=== PATIENT | female | born 1935 | race Caucasian/White ===

== ENCOUNTER 2019-03-14 11:32 | Inpatient (IN) ==
[2019-03-14] MEDS ORDERED: MAGNESIUM SULF RIDER 4 GM in PREMIX 1 EACH IV ONE (14:49)
[2019-03-14] MEDS: metroNIDAZOLE INJ 500 MG in PREMIX 1 EACH IV SCH ×2 (15:40→20:38)
[2019-03-14] MEDS: POTASSIUM CHLORIDE INJ 20 MEQ in LACTATED RINGERS 1,000 ML IV SCH (15:47)
[2019-03-14] MEDS: CHOLESTYRAMINE/ASPARTAME 4 GM PACK PO SCH ×2 (15:49→20:38)
[2019-03-14] MEDS ORDERED: PIPERACILLIN/TAZOBACTAM 3,375 MG in SODIUM CHLORIDE 0.9% 100 ML IV SCH (16:00)
[2019-03-14 16:01] LABS: Basophils # 0.1 10*3/uL (0.0-0.2); Basophils % 0.3 % (0.0-0.8); Eosinophils # 0.1 10*3/uL (0.0-0.87); Eosinophils % 0.2 % (0.00-10.9); Hematocrit 38.9 VOL% (35.7-47.0); Hemoglobin 12.6 GM/DL (12.0-16.0); Immature Granulocytes % 3.4 %; Immature Granulocytes Absolute 1.27 #; Lymphocytes # 0.7 10*3/uL (1.4-4.0); Lymphocytes % 1.9 % (21.3-54.2); Mean Corpuscular HGB Conc 32.4 GM/DL (32-36); Mean Corpuscular Volume 88.2 FL (87-102); Mean Platelet Volume 10.2 FL (9.6-12.0); Monocytes % 2.9 % (1.7-12.7); Neutrophils % 91.3 % (38.7-73.9); Platelet Count 302 T/CUMM (130-400); Red Blood Count 4.41 MC/CUMM (3.8-5.5); Red Cell Distribution Width 12.9 % (9.3-17.3); White Blood Count 37.7 T/CUMM (4-12)
[2019-03-14 16:21] LABS: Albumin 1.8 G/DL (3.4-5.0); Bilirubin,Total 0.5 MG/DL (0.2-1.0); Calcium 8.6 MG/DL (8.5-10.1); Osmolality,Calculated 269.1 MOS/KG (273-304); Total Protein 5.2 G/DL (6.4-8.3)
[2019-03-14 16:30] LABS: Band Neutrophils 4 % (0-10); Lymphocytes 2 % (20-55); Platelet Estimate Normal; Segmented Neutrophils 92 % (50-85); Total Cells Counted 100
[2019-03-14] MEDS ORDERED: LACTATED RINGERS 1,000 ML IV ONE (16:44)
[2019-03-14] MEDS: VANCOMYCIN 50 MG/ML 60 ML/BOTTLE PO SCH (17:27)
[2019-03-14] MEDS: ceFAZolin 500 MG in SYRINGE 1 EACH IV SCH (20:38)
[2019-03-15] MEDS: POTASSIUM CHLORIDE INJ 20 MEQ in LACTATED RINGERS 1,000 ML IV SCH (00:05)
[2019-03-15] MEDS: VANCOMYCIN 50 MG/ML 60 ML/BOTTLE PO SCH ×4 (00:26→21:09)
[2019-03-15] MEDS: metroNIDAZOLE INJ 500 MG in PREMIX 1 EACH IV SCH ×4 (04:00→21:09)
[2019-03-15 04:29] LABS: Basophils # 0.1 10*3/uL (0.0-0.2); Basophils % 0.2 % (0.0-0.8); Eosinophils # 0.1 10*3/uL (0.0-0.87); Eosinophils % 0.2 % (0.00-10.9); Hematocrit 31.9 VOL% (35.7-47.0); Hemoglobin 10.6 GM/DL (12.0-16.0); Immature Granulocytes % 3.1 %; Immature Granulocytes Absolute 0.93 #; Lymphocytes # 0.7 10*3/uL (1.4-4.0); Lymphocytes % 2.3 % (21.3-54.2); Mean Corpuscular HGB Conc 33.2 GM/DL (32-36); Mean Corpuscular Volume 84.2 FL (87-102); Mean Platelet Volume 9.9 FL (9.6-12.0); Monocytes % 2.9 % (1.7-12.7); Neutrophils % 91.3 % (38.7-73.9); Platelet Count 293 T/CUMM (130-400); Red Blood Count 3.79 MC/CUMM (3.8-5.5); Red Cell Distribution Width 12.8 % (9.3-17.3); White Blood Count 29.6 T/CUMM (4-12)
[2019-03-15 04:53] LABS: Calcium 8.4 MG/DL (8.5-10.1); Osmolality,Calculated 266.2 MOS/KG (273-304); Troponin I 0.015 NG/ML (0.00-0.045)
[2019-03-15 05:19] LABS: Lymphocytes 2 % (20-55); Platelet Estimate Normal; Polychromasia Few; Segmented Neutrophils 96 % (50-85); Total Cells Counted 100
[2019-03-15] MEDS: ceFAZolin 500 MG in SYRINGE 1 EACH IV SCH ×3 (05:39→23:04)
[2019-03-15] MEDS: PANTOPRAZOLE 40 MG TABLET PO SCH (09:21)
[2019-03-15] MEDS: LACTATED RINGERS 1,000 ML IV SCH ×2 (09:21→19:44)
[2019-03-15] MEDS: CHOLESTYRAMINE/ASPARTAME 4 GM PACK PO SCH ×2 (09:21→21:10)
[2019-03-15] MEDS: ACETAMINOPHEN 325 MG TABLET PO PRN (15:55)
[2019-03-16] MEDS ORDERED: MELATONIN 3 MG TABLET PO ONE ×2 (00:42→02:33)
[2019-03-16] MEDS: VANCOMYCIN 50 MG/ML 60 ML/BOTTLE PO SCH ×4 (01:01→17:08)
[2019-03-16] MEDS: ACETAMINOPHEN 325 MG TABLET PO PRN (03:32)
[2019-03-16] MEDS: metroNIDAZOLE INJ 500 MG in PREMIX 1 EACH IV SCH ×4 (03:32→21:06)
[2019-03-16 05:40] LABS: Basophils # 0.1 10*3/uL (0.0-0.2); Basophils % 0.4 % (0.0-0.8); Eosinophils # 0.2 10*3/uL (0.0-0.87); Eosinophils % 1.3 % (0.00-10.9); Hematocrit 32.9 VOL% (35.7-47.0); Hemoglobin 10.9 GM/DL (12.0-16.0); Immature Granulocytes % 3.3 %; Lymphocytes # 0.6 10*3/uL (1.4-4.0); Lymphocytes % 4.1 % (21.3-54.2); Mean Corpuscular HGB Conc 33.1 GM/DL (32-36); Mean Corpuscular Volume 86.1 FL (87-102); Mean Platelet Volume 11.3 FL (9.6-12.0); Monocytes % 3.9 % (1.7-12.7); Platelet Count 199 T/CUMM (130-400); Red Blood Count 3.82 MC/CUMM (3.8-5.5); Red Cell Distribution Width 12.7 % (9.3-17.3)
[2019-03-16] MEDS: ceFAZolin 500 MG in SYRINGE 1 EACH IV SCH ×3 (06:14→21:07)
[2019-03-16 06:16] LABS: Albumin 1.6 G/DL (3.4-5.0); Bilirubin,Total 0.7 MG/DL (0.2-1.0); Calcium 8.3 MG/DL (8.5-10.1); Total Protein 4.2 G/DL (6.4-8.3)
[2019-03-16 06:18] LABS: Band Neutrophils 4 % (0-10); Eosinophils 3 % (0-10); Hypochromasia 1+; Lymphocytes 6 % (20-55); Microcytosis 1+; Myelocytes 2 %; Segmented Neutrophils 82 % (50-85); Total Cells Counted 100
[2019-03-16 06:19] LABS: Ovalocytes Few; Platelet Estimate Adequate
[2019-03-16] MEDS: CHOLESTYRAMINE/ASPARTAME 4 GM PACK PO SCH ×2 (08:34→21:06)
[2019-03-16] MEDS: PANTOPRAZOLE 40 MG TABLET PO SCH (08:34)
[2019-03-16] MEDS: DICLOFENAC 1% GEL 100 GM TUBE TOP PRN (12:17)
[2019-03-16] MEDS: LACTATED RINGERS 1,000 ML IV SCH (12:19)
[2019-03-17] MEDS: LACTATED RINGERS 1,000 ML IV SCH ×2 (00:11→10:11)
[2019-03-17] MEDS: VANCOMYCIN 50 MG/ML 60 ML/BOTTLE PO SCH ×4 (00:12→17:36)
[2019-03-17] MEDS: metroNIDAZOLE INJ 500 MG in PREMIX 1 EACH IV SCH ×4 (03:38→21:29)
[2019-03-17 05:06] LABS: Basophils # 0.1 10*3/uL (0.0-0.2); Basophils % 0.7 % (0.0-0.8); Eosinophils # 0.1 10*3/uL (0.0-0.87); Eosinophils % 0.7 % (0.00-10.9); Hematocrit 36.5 VOL% (35.7-47.0); Hemoglobin 12.3 GM/DL (12.0-16.0); Immature Granulocytes % 5.4 %; Lymphocytes # 0.8 10*3/uL (1.4-4.0); Lymphocytes % 5.5 % (21.3-54.2); Mean Corpuscular HGB Conc 33.7 GM/DL (32-36); Mean Corpuscular Volume 83.7 FL (87-102); Mean Platelet Volume 9.6 FL (9.6-12.0); Monocytes % 6.7 % (1.7-12.7); Platelet Count 296 T/CUMM (130-400); Red Blood Count 4.36 MC/CUMM (3.8-5.5); Red Cell Distribution Width 12.6 % (9.3-17.3); White Blood Count 14.7 T/CUMM (4-12)
[2019-03-17] MEDS: ceFAZolin 500 MG in SYRINGE 1 EACH IV SCH ×3 (05:20→21:27)
[2019-03-17 06:02] LABS: Lymphocytes 4 % (20-55); Metamyelocytes 2 %; Platelet Estimate Normal; Segmented Neutrophils 89 % (50-85); Total Cells Counted 100
[2019-03-17 06:06] LABS: Alanine Aminotransferase 9 U/L (13-56); Albumin 1.7 G/DL (3.4-5.0); Alkaline Phosphatase 79 U/L (45-117); Aspartate Amino Transferase 14 U/L (0-37); Bilirubin,Total < 0.39 MG/DL (0.2-1.0); Blood Urea Nitrogen 8 MG/DL (7-18); Calcium 8.3 MG/DL (8.5-10.1); Estimated Glom Filtration Rate 78 ML/MIN; Glucose 82 MG/DL (74-106); Osmolality,Calculated 275.4 MOS/KG (273-304); Total Protein 4.2 G/DL (6.4-8.3)
[2019-03-17] MEDS: DICLOFENAC 1% GEL 100 GM TUBE TOP PRN ×2 (09:14→16:36)
[2019-03-17] MEDS: CHOLESTYRAMINE/ASPARTAME 4 GM PACK PO SCH ×2 (09:15→21:29)
[2019-03-17] MEDS: PANTOPRAZOLE 40 MG TABLET PO SCH (09:15)
[2019-03-17] MEDS: POTASSIUM CHLORIDE 20 MEQ TABLET PO PRN ×3 (09:15→13:40)
[2019-03-17] MEDS: ACETAMINOPHEN 325 MG TABLET PO PRN ×2 (09:20→16:36)
[2019-03-17] MEDS: GABAPENTIN 300 MG CAPSULE PO SCH (21:27)
[2019-03-17] MEDS: MEMANTINE 10 MG TABLET PO SCH (21:28)
[2019-03-18] MEDS: VANCOMYCIN 50 MG/ML 60 ML/BOTTLE PO SCH ×2 (01:40→06:15)
[2019-03-18] MEDS: metroNIDAZOLE INJ 500 MG in PREMIX 1 EACH IV SCH ×4 (04:34→21:45)
[2019-03-18] MEDS: ceFAZolin 500 MG in SYRINGE 1 EACH IV SCH (04:35)
[2019-03-18 05:34] LABS: Basophils # 0.1 10*3/uL (0.0-0.2); Basophils % 0.7 % (0.0-0.8); Eosinophils # 0.2 10*3/uL (0.0-0.87); Eosinophils % 1.5 % (0.00-10.9); Hematocrit 34.4 VOL% (35.7-47.0); Hemoglobin 11.5 GM/DL (12.0-16.0); Immature Granulocytes % 6.8 %; Immature Granulocytes Absolute 0.79 #; Lymphocytes # 0.9 10*3/uL (1.4-4.0); Lymphocytes % 7.9 % (21.3-54.2); Mean Corpuscular HGB Conc 33.4 GM/DL (32-36); Mean Corpuscular Volume 83.7 FL (87-102); Mean Platelet Volume 9.3 FL (9.6-12.0); Neutrophils % 74.1 % (38.7-73.9); Platelet Count 265 T/CUMM (130-400); Red Blood Count 4.11 MC/CUMM (3.8-5.5); Red Cell Distribution Width 12.7 % (9.3-17.3); White Blood Count 11.6 T/CUMM (4-12)
[2019-03-18 05:52] LABS: Albumin 1.5 G/DL (3.4-5.0); Bilirubin,Total 0.8 MG/DL (0.2-1.0); Calcium 7.7 MG/DL (8.5-10.1); Osmolality,Calculated 277.3 MOS/KG (273-304); Total Protein 3.7 G/DL (6.4-8.3)
[2019-03-18 05:58] LABS: Band Neutrophils 1 % (0-10); Eosinophils 3 % (0-10); Hypochromasia 1+; Lymphocytes 6 % (20-55); Microcytosis Slight; Ovalocytes Slight; Platelet Estimate Adequate; Segmented Neutrophils 86 % (50-85); Total Cells Counted 100
[2019-03-18] MEDS: MEMANTINE 10 MG TABLET PO SCH ×2 (09:21→20:38)
[2019-03-18] MEDS: GABAPENTIN 300 MG CAPSULE PO SCH ×2 (09:21→20:37)
[2019-03-18] MEDS: LEVOTHYROXINE 100 MCG TABLET PO SCH (09:22)
[2019-03-18] MEDS: PANTOPRAZOLE 40 MG TABLET PO SCH (09:22)
[2019-03-18] MEDS: FERROUS SULFATE 325 MG TABLET PO SCH (09:22)
[2019-03-18] MEDS: LACTATED RINGERS 1,000 ML IV SCH (09:40)
[2019-03-18] MEDS: CHOLESTYRAMINE/ASPARTAME 4 GM PACK PO SCH ×2 (09:40→20:38)
[2019-03-18] MEDS: PIPERACILLIN/TAZOBACTAM 3,375 MG in SODIUM CHLORIDE 0.9% 100 ML IV SCH ×2 (10:56→17:29)
[2019-03-18] MEDS: POTASSIUM CHLORIDE 20 MEQ TABLET PO PRN (10:57)
[2019-03-18] MEDS ORDERED: MENTHOL/ZINC OXIDE OINT 71 GM JAR TOP PRN (13:53)
[2019-03-18] MEDS: ONDANSETRON 4 MG/2 ML VIAL IV PRN (16:59)
[2019-03-19] MEDS: PIPERACILLIN/TAZOBACTAM 3,375 MG in SODIUM CHLORIDE 0.9% 100 ML IV SCH ×3 (02:05→17:41)
[2019-03-19] MEDS: ONDANSETRON 4 MG/2 ML VIAL IV PRN ×2 (02:58→11:06)
[2019-03-19] MEDS: metroNIDAZOLE INJ 500 MG in PREMIX 1 EACH IV SCH ×4 (07:04→22:00)
[2019-03-19] MEDS: FERROUS SULFATE 325 MG TABLET PO SCH (09:34)
[2019-03-19] MEDS: PANTOPRAZOLE 40 MG TABLET PO SCH (09:34)
[2019-03-19] MEDS: LEVOTHYROXINE 100 MCG TABLET PO SCH (09:34)
[2019-03-19] MEDS: MEMANTINE 10 MG TABLET PO SCH ×2 (09:34→21:12)
[2019-03-19] MEDS: CHOLESTYRAMINE/ASPARTAME 4 GM PACK PO SCH ×2 (09:34→21:12)
[2019-03-19] MEDS: GABAPENTIN 300 MG CAPSULE PO SCH ×2 (09:34→21:13)
[2019-03-19] MEDS: ACETAMINOPHEN 325 MG TABLET PO PRN (12:48)
[2019-03-19] MEDS: LACTATED RINGERS 1,000 ML IV SCH (14:58)
[2019-03-20] MEDS: PIPERACILLIN/TAZOBACTAM 3,375 MG in SODIUM CHLORIDE 0.9% 100 ML IV SCH ×3 (01:36→18:13)
[2019-03-20] MEDS: metroNIDAZOLE INJ 500 MG in PREMIX 1 EACH IV SCH ×4 (06:05→23:19)
[2019-03-20 08:54] LABS: Basophils # 0.1 10*3/uL (0.0-0.2); Basophils % 0.9 % (0.0-0.8); Eosinophils # 0.2 10*3/uL (0.0-0.87); Eosinophils % 1.9 % (0.00-10.9); Hematocrit 37.1 VOL% (35.7-47.0); Immature Granulocytes % 9.2 %; Immature Granulocytes Absolute 0.97 #; Lymphocytes % 9.5 % (21.3-54.2); Mean Corpuscular HGB Conc 32.3 GM/DL (32-36); Mean Corpuscular Volume 86.5 FL (87-102); Monocytes % 7.5 % (1.7-12.7); Platelet Count 328 T/CUMM (130-400); Red Blood Count 4.29 MC/CUMM (3.8-5.5); Red Cell Distribution Width 13.1 % (9.3-17.3); White Blood Count 10.5 T/CUMM (4-12)
[2019-03-20] MEDS: MEMANTINE 10 MG TABLET PO SCH ×2 (09:05→21:57)
[2019-03-20] MEDS: LEVOTHYROXINE 100 MCG TABLET PO SCH (09:05)
[2019-03-20] MEDS: FERROUS SULFATE 325 MG TABLET PO SCH (09:06)
[2019-03-20] MEDS: POTASSIUM CHLORIDE 20 MEQ TABLET PO PRN ×2 (09:06→16:00)
[2019-03-20] MEDS: CHOLESTYRAMINE/ASPARTAME 4 GM PACK PO SCH ×2 (09:06→21:57)
[2019-03-20] MEDS: GABAPENTIN 300 MG CAPSULE PO SCH ×2 (09:06→21:57)
[2019-03-20] MEDS: PANTOPRAZOLE 40 MG TABLET PO SCH (09:06)
[2019-03-20 09:23] LABS: Band Neutrophils 18 % (0-10); Eosinophils 2 % (0-10); Lymphocytes 14 % (20-55); Platelet Estimate Normal; Segmented Neutrophils 58 % (50-85); Total Cells Counted 100
[2019-03-20 09:24] LABS: Anisocytosis Slight
[2019-03-20 09:44] LABS: Calcium 7.5 MG/DL (8.5-10.1); Osmolality,Calculated 273.5 MOS/KG (273-304)
[2019-03-20] MEDS ORDERED: GLUCAGON 1 MG VIAL IM PRN (11:14)
[2019-03-20] MEDS ORDERED: DEXTROSE 50% 25 GM/50 ML VIAL IV PRN (11:14)
[2019-03-20] MEDS ORDERED: DEXTROSE 10% 250 ML IV PRN (11:22)
[2019-03-20] MEDS ORDERED: TUBERCULIN SKIN TEST 0.1 ML SYRINGE INTRADERM ONE (13:00)
[2019-03-20] MEDS: INSULIN REGULAR 100 UNIT/ML SUBCUT SCH ×2 (13:15→17:07)
[2019-03-20] MEDS ORDERED: BISACODYL 5 MG TABLET PO ONE (16:00)
[2019-03-20] MEDS ORDERED: POLYETHYLENE GLYCOL POWDER 255 GM BOTTLE PO ONE (16:00)
[2019-03-20] MEDS ORDERED: TRACE ELEMENTS (5) 1 ML, MULTIVITAMIN INJ 10 ML, MAGNESIUM SULF INJ 2 GM in AMINO ACIDS... IV SCH (17:00)
[2019-03-20] MEDS ORDERED: DEXTROSE 10% 1,000 ML IV PRN (17:00)
[2019-03-20] MEDS: FAT EMULSION 20% 250 ML IV SCH (17:45)
[2019-03-20] MEDS: LACTATED RINGERS 1,000 ML IV SCH (18:13)
[2019-03-20] MEDS: ONDANSETRON 4 MG/2 ML VIAL IV PRN (18:57)
[2019-03-21] MEDS: INSULIN REGULAR 100 UNIT/ML SUBCUT SCH ×4 (02:53→19:11)
[2019-03-21] MEDS: PIPERACILLIN/TAZOBACTAM 3,375 MG in SODIUM CHLORIDE 0.9% 100 ML IV SCH ×2 (03:38→10:33)
[2019-03-21 04:48] LABS: Basophils # 0.1 10*3/uL (0.0-0.2); Basophils % 0.6 % (0.0-0.8); Eosinophils # 0.2 10*3/uL (0.0-0.87); Eosinophils % 1.8 % (0.00-10.9); Hematocrit 31.9 VOL% (35.7-47.0); Hemoglobin 10.4 GM/DL (12.0-16.0); Immature Granulocytes % 7.4 %; Immature Granulocytes Absolute 0.79 #; Lymphocytes # 0.8 10*3/uL (1.4-4.0); Mean Corpuscular HGB Conc 32.6 GM/DL (32-36); Mean Corpuscular Volume 84.8 FL (87-102); Mean Platelet Volume 10.8 FL (9.6-12.0); Monocytes % 6.8 % (1.7-12.7); Neutrophils % 76.4 % (38.7-73.9); Platelet Count 186 T/CUMM (130-400); Red Blood Count 3.76 MC/CUMM (3.8-5.5); White Blood Count 10.7 T/CUMM (4-12)
[2019-03-21 04:50] LABS: INR 1.3; PT Patient Result 14.6 SECS (9.6-12.2)
[2019-03-21 05:06] LABS: Calcium 7.6 MG/DL (8.5-10.1)
[2019-03-21 05:11] LABS: Prealbumin 10.2 MG/DL (20-40)
[2019-03-21 05:23] LABS: Band Neutrophils 1 % (0-10); Eosinophils 1 % (0-10); Hypochromasia 1+; Lymphocytes 13 % (20-55); Platelet Estimate Adequate; Segmented Neutrophils 81 % (50-85); Total Cells Counted 100
[2019-03-21 05:24] LABS: Ovalocytes Slight
[2019-03-21] MEDS: LACTATED RINGERS 1,000 ML IV SCH ×2 (07:17→16:14)
[2019-03-21] MEDS: metroNIDAZOLE INJ 500 MG in PREMIX 1 EACH IV SCH ×2 (09:10→15:26)
[2019-03-21] MEDS ORDERED: PROPOFOL 200 MG/20 ML VIAL IV ONE (10:00)
[2019-03-21] MEDS ORDERED: LIDOCAINE 2% 5 ML VIAL ONE (10:00)
[2019-03-21] MEDS: MORPHINE 4 MG/1 ML VIAL IV PRN ×2 (10:20→16:37)
[2019-03-21] MEDS ORDERED: MAGNESIUM SULF RIDER 2 GM in PREMIX 1 EACH IV ONE (15:08)
[2019-03-21] MEDS: LEVOTHYROXINE 100 MCG TABLET PO SCH (15:35)
[2019-03-21] MEDS: FERROUS SULFATE 325 MG TABLET PO SCH (15:35)
[2019-03-21] MEDS: POTASSIUM CHLORIDE 20 MEQ TABLET PO PRN ×2 (15:35→19:31)
[2019-03-21] MEDS: PANTOPRAZOLE 40 MG TABLET PO SCH (15:35)
[2019-03-21] MEDS: FAT EMULSION 20% 250 ML IV SCH (15:41)
[2019-03-21] MEDS: MEMANTINE 10 MG TABLET PO SCH ×2 (16:14→21:29)
[2019-03-21] MEDS: GABAPENTIN 300 MG CAPSULE PO SCH ×2 (16:15→21:48)
[2019-03-21] MEDS: CHOLESTYRAMINE/ASPARTAME 4 GM PACK PO SCH ×2 (16:15→21:29)
[2019-03-21] MEDS: VANCOMYCIN 50 MG/ML 60 ML/BOTTLE PO SCH (18:57)
[2019-03-21] MEDS ORDERED: traZODone 50 MG TABLET PO ONE (21:00)
[2019-03-21] MEDS: DESITIN 4OZ/NYSTATIN 15 GRAM MIXTURE PASTE TOP SCH (21:30)
[2019-03-22] MEDS: VANCOMYCIN 50 MG/ML 60 ML/BOTTLE PO SCH ×5 (00:59→20:59)
[2019-03-22] MEDS: INSULIN REGULAR 100 UNIT/ML SUBCUT SCH ×4 (02:04→19:12)
[2019-03-22 05:31] LABS: Basophils % 0.5 % (0.0-0.8); Eosinophils # 0.2 10*3/uL (0.0-0.87); Eosinophils % 1.7 % (0.00-10.9); Hematocrit 30.7 VOL% (35.7-47.0); Hemoglobin 9.9 GM/DL (12.0-16.0); Immature Granulocytes % 5.4 %; Immature Granulocytes Absolute 0.47 #; Lymphocytes # 0.9 10*3/uL (1.4-4.0); Lymphocytes % 9.8 % (21.3-54.2); Mean Corpuscular HGB Conc 32.2 GM/DL (32-36); Mean Corpuscular Volume 86.5 FL (87-102); Mean Platelet Volume 9.6 FL (9.6-12.0); Monocytes % 6.5 % (1.7-12.7); Neutrophils % 76.1 % (38.7-73.9); Platelet Count 277 T/CUMM (130-400); Red Blood Count 3.55 MC/CUMM (3.8-5.5); White Blood Count 8.8 T/CUMM (4-12)
[2019-03-22 06:03] LABS: Band Neutrophils 2 % (0-10); Eosinophils 2 % (0-10); Lymphocytes 6 % (20-55); Nucleated Red Blood Cells 1 (0-5); Segmented Neutrophils 84 % (50-85); Total Cells Counted 100
[2019-03-22 06:04] LABS: Anisocytosis 1+; Hypochromasia 1+; Platelet Estimate Adequate
[2019-03-22 06:06] LABS: Calcium 7.3 MG/DL (8.5-10.1); Osmolality,Calculated 278.4 MOS/KG (273-304)
[2019-03-22] MEDS: DICLOFENAC 1% GEL 100 GM TUBE TOP PRN (08:12)
[2019-03-22] MEDS: TRACE ELEMENTS (5) 1 ML, MULTIVITAMIN INJ 10 ML, MAGNESIUM SULF INJ 2 GM in AMINO ACIDS... IV SCH ×2 (09:48→18:44)
[2019-03-22] MEDS: PANTOPRAZOLE 40 MG TABLET PO SCH (09:51)
[2019-03-22] MEDS: FERROUS SULFATE 325 MG TABLET PO SCH (09:51)
[2019-03-22] MEDS: LEVOTHYROXINE 100 MCG TABLET PO SCH (09:51)
[2019-03-22] MEDS: GABAPENTIN 300 MG CAPSULE PO SCH ×2 (09:52→20:58)
[2019-03-22] MEDS: MEMANTINE 10 MG TABLET PO SCH ×2 (09:53→20:58)
[2019-03-22] MEDS: CHOLESTYRAMINE/ASPARTAME 4 GM PACK PO SCH ×2 (10:13→20:59)
[2019-03-22] MEDS: ONDANSETRON 4 MG/2 ML VIAL IV PRN (14:31)
[2019-03-22] MEDS ORDERED: MAGNESIUM SULF RIDER 2 GM in PREMIX 1 EACH IV ONE (15:00)
[2019-03-22] MEDS: FAT EMULSION 20% 250 ML IV SCH (16:00)
[2019-03-22] MEDS: DESITIN 4OZ/NYSTATIN 15 GRAM MIXTURE PASTE TOP SCH ×2 (16:05→20:59)
[2019-03-22] MEDS: LACTATED RINGERS 1,000 ML IV SCH (20:44)
[2019-03-23] MEDS: INSULIN REGULAR 100 UNIT/ML SUBCUT SCH ×4 (02:01→18:36)
[2019-03-23 05:44] LABS: Basophils % 0.4 % (0.0-0.8); Eosinophils # 0.2 10*3/uL (0.0-0.87); Hemoglobin 9.9 GM/DL (12.0-16.0); Immature Granulocytes % 4.9 %; Immature Granulocytes Absolute 0.44 #; Lymphocytes % 10.8 % (21.3-54.2); Mean Corpuscular HGB Conc 31.9 GM/DL (32-36); Mean Corpuscular Volume 87.3 FL (87-102); Mean Platelet Volume 9.7 FL (9.6-12.0); Monocytes % 6.1 % (1.7-12.7); Neutrophils % 75.8 % (38.7-73.9); Platelet Count 265 T/CUMM (130-400); Red Blood Count 3.55 MC/CUMM (3.8-5.5); Red Cell Distribution Width 13.2 % (9.3-17.3)
[2019-03-23 06:18] LABS: Calcium 7.5 MG/DL (8.5-10.1); Osmolality,Calculated 273.5 MOS/KG (273-304)
[2019-03-23] MEDS: FERROUS SULFATE 325 MG TABLET PO SCH (09:13)
[2019-03-23] MEDS: LEVOTHYROXINE 100 MCG TABLET PO SCH (09:13)
[2019-03-23] MEDS: MEMANTINE 10 MG TABLET PO SCH ×2 (09:13→20:47)
[2019-03-23] MEDS: GABAPENTIN 300 MG CAPSULE PO SCH ×2 (09:13→20:46)
[2019-03-23] MEDS: PANTOPRAZOLE 40 MG TABLET PO SCH (09:13)
[2019-03-23] MEDS: VANCOMYCIN 50 MG/ML 60 ML/BOTTLE PO SCH ×4 (09:14→20:47)
[2019-03-23] MEDS: CHOLESTYRAMINE/ASPARTAME 4 GM PACK PO SCH (09:14)
[2019-03-23] MEDS: DESITIN 4OZ/NYSTATIN 15 GRAM MIXTURE PASTE TOP SCH ×2 (10:29→20:47)
[2019-03-23] MEDS: ACETAMINOPHEN 325 MG TABLET PO PRN (13:34)
[2019-03-23] MEDS: FAT EMULSION 20% 250 ML IV SCH (14:34)
[2019-03-23] MEDS: TRACE ELEMENTS (5) 1 ML, MULTIVITAMIN INJ 10 ML, MAGNESIUM SULF INJ 2 GM in AMINO ACIDS... IV SCH (17:54)
[2019-03-24] MEDS: INSULIN REGULAR 100 UNIT/ML SUBCUT SCH ×4 (00:59→19:15)
[2019-03-24 05:21] LABS: Basophils # 0.1 10*3/uL (0.0-0.2); Basophils % 0.5 % (0.0-0.8); Eosinophils # 0.2 10*3/uL (0.0-0.87); Eosinophils % 1.6 % (0.00-10.9); Immature Granulocytes % 4.4 %; Immature Granulocytes Absolute 0.41 #; Lymphocytes # 0.9 10*3/uL (1.4-4.0); Lymphocytes % 9.3 % (21.3-54.2); Mean Corpuscular HGB Conc 32.4 GM/DL (32-36); Mean Corpuscular Volume 87.2 FL (87-102); Mean Platelet Volume 9.6 FL (9.6-12.0); Monocytes % 6.7 % (1.7-12.7); Neutrophils % 77.5 % (38.7-73.9); Platelet Count 289 T/CUMM (130-400); Red Cell Distribution Width 13.3 % (9.3-17.3); White Blood Count 9.3 T/CUMM (4-12)
[2019-03-24 05:39] LABS: Calcium 8.2 MG/DL (8.5-10.1); Osmolality,Calculated 278.4 MOS/KG (273-304)
[2019-03-24] MEDS: GABAPENTIN 300 MG CAPSULE PO SCH ×2 (09:02→20:41)
[2019-03-24] MEDS: FERROUS SULFATE 325 MG TABLET PO SCH (09:03)
[2019-03-24] MEDS: PANTOPRAZOLE 40 MG TABLET PO SCH (09:03)
[2019-03-24] MEDS: MEMANTINE 10 MG TABLET PO SCH ×2 (09:03→20:41)
[2019-03-24] MEDS: LEVOTHYROXINE 100 MCG TABLET PO SCH (09:03)
[2019-03-24] MEDS: POTASSIUM CHLORIDE 20 MEQ TABLET PO PRN ×4 (09:03→18:54)
[2019-03-24] MEDS: DESITIN 4OZ/NYSTATIN 15 GRAM MIXTURE PASTE TOP SCH ×2 (10:06→20:42)
[2019-03-24] MEDS: VANCOMYCIN 50 MG/ML 60 ML/BOTTLE PO SCH ×4 (10:06→20:42)
[2019-03-24] MEDS: MAGNESIUM OXIDE 400 MG TABLET PO SCH ×2 (12:19→20:41)
[2019-03-24] MEDS: LACTATED RINGERS 1,000 ML IV SCH (14:03)
[2019-03-24] MEDS: FAT EMULSION 20% 250 ML IV SCH (14:04)
[2019-03-24] MEDS: TRACE ELEMENTS (5) 1 ML, MULTIVITAMIN INJ 10 ML, MAGNESIUM SULF INJ 2 GM in AMINO ACIDS... IV SCH (16:59)
[2019-03-25] MEDS: INSULIN REGULAR 100 UNIT/ML SUBCUT SCH ×4 (00:28→18:13)
[2019-03-25 05:40] LABS: Calcium 8.3 MG/DL (8.5-10.1); Osmolality,Calculated 277.5 MOS/KG (273-304)
[2019-03-25 05:46] LABS: Prealbumin 16.9 MG/DL (20-40)
[2019-03-25] MEDS: LEVOTHYROXINE 100 MCG TABLET PO SCH (07:24)
[2019-03-25] MEDS: GABAPENTIN 300 MG CAPSULE PO SCH ×2 (08:54→21:38)
[2019-03-25] MEDS: FERROUS SULFATE 325 MG TABLET PO SCH (08:54)
[2019-03-25] MEDS: PANTOPRAZOLE 40 MG TABLET PO SCH (08:54)
[2019-03-25] MEDS: MEMANTINE 10 MG TABLET PO SCH ×2 (08:54→21:42)
[2019-03-25] MEDS: MAGNESIUM OXIDE 400 MG TABLET PO SCH ×2 (08:54→21:38)
[2019-03-25] MEDS: VANCOMYCIN 50 MG/ML 60 ML/BOTTLE PO SCH ×4 (08:54→21:42)
[2019-03-25] MEDS: DESITIN 4OZ/NYSTATIN 15 GRAM MIXTURE PASTE TOP SCH ×2 (08:55→21:38)
[2019-03-25 09:20] LABS: Basophils % 0.4 % (0.0-0.8); Eosinophils # 0.1 10*3/uL (0.0-0.87); Eosinophils % 1.4 % (0.00-10.9); Hematocrit 34.3 VOL% (35.7-47.0); Hemoglobin 10.9 GM/DL (12.0-16.0); Immature Granulocytes % 1.6 %; Immature Granulocytes Absolute 0.16 #; Lymphocytes # 1.1 10*3/uL (1.4-4.0); Lymphocytes % 10.9 % (21.3-54.2); Mean Corpuscular HGB Conc 31.8 GM/DL (32-36); Mean Corpuscular Volume 88.9 FL (87-102); Mean Platelet Volume 10.4 FL (9.6-12.0); Monocytes % 6.9 % (1.7-12.7); Neutrophils % 78.8 % (38.7-73.9); Platelet Count 245 T/CUMM (130-400); Red Blood Count 3.86 MC/CUMM (3.8-5.5); Red Cell Distribution Width 13.7 % (9.3-17.3); White Blood Count 9.7 T/CUMM (4-12)
[2019-03-25] MEDS: FAT EMULSION 20% 250 ML IV SCH (14:42)
[2019-03-25] MEDS: LACTATED RINGERS 1,000 ML IV SCH (14:42)
[2019-03-25] MEDS: metroNIDAZOLE INJ 500 MG in PREMIX 1 EACH IV SCH ×2 (14:42→21:43)
[2019-03-25] MEDS: TRACE ELEMENTS (5) 1 ML, MULTIVITAMIN INJ 10 ML, MAGNESIUM SULF INJ 2 GM in AMINO ACIDS... IV SCH (17:18)
[2019-03-26] MEDS: INSULIN REGULAR 100 UNIT/ML SUBCUT SCH ×4 (01:54→18:17)
[2019-03-26] MEDS: metroNIDAZOLE INJ 500 MG in PREMIX 1 EACH IV SCH ×3 (05:42→21:28)
[2019-03-26] MEDS: LACTATED RINGERS 1,000 ML IV SCH (05:43)
[2019-03-26] MEDS: LEVOTHYROXINE 100 MCG TABLET PO SCH (06:09)
[2019-03-26] MEDS: MORPHINE 4 MG/1 ML VIAL IV PRN (09:33)
[2019-03-26] MEDS: GABAPENTIN 300 MG CAPSULE PO SCH ×2 (09:34→21:29)
[2019-03-26] MEDS: PANTOPRAZOLE 40 MG TABLET PO SCH (09:34)
[2019-03-26] MEDS: MAGNESIUM OXIDE 400 MG TABLET PO SCH ×2 (09:34→21:29)
[2019-03-26] MEDS: DESITIN 4OZ/NYSTATIN 15 GRAM MIXTURE PASTE TOP SCH ×2 (09:34→21:36)
[2019-03-26] MEDS: MEMANTINE 10 MG TABLET PO SCH ×2 (09:34→21:29)
[2019-03-26] MEDS: FERROUS SULFATE 325 MG TABLET PO SCH (09:34)
[2019-03-26] MEDS: VANCOMYCIN 50 MG/ML 60 ML/BOTTLE PO SCH ×4 (09:34→21:40)
[2019-03-26 12:09] LABS: Basophils % 0.4 % (0.0-0.8); Eosinophils # 0.1 10*3/uL (0.0-0.87); Eosinophils % 0.8 % (0.00-10.9); Hematocrit 32.2 VOL% (35.7-47.0); Hemoglobin 10.4 GM/DL (12.0-16.0); Immature Granulocytes % 0.8 %; Immature Granulocytes Absolute 0.08 #; Lymphocytes # 0.9 10*3/uL (1.4-4.0); Lymphocytes % 8.4 % (21.3-54.2); Mean Corpuscular HGB Conc 32.3 GM/DL (32-36); Mean Corpuscular Volume 86.8 FL (87-102); Mean Platelet Volume 9.7 FL (9.6-12.0); Monocytes % 7.7 % (1.7-12.7); Neutrophils % 81.9 % (38.7-73.9); Platelet Count 284 T/CUMM (130-400); Red Blood Count 3.71 MC/CUMM (3.8-5.5); Red Cell Distribution Width 13.7 % (9.3-17.3); White Blood Count 10.3 T/CUMM (4-12)
[2019-03-26 12:36] LABS: Calcium 8.4 MG/DL (8.5-10.1); Osmolality,Calculated 274.8 MOS/KG (273-304)
[2019-03-26] MEDS: FAT EMULSION 20% 250 ML IV SCH (14:50)
[2019-03-26] MEDS: TRACE ELEMENTS (5) 1 ML, MULTIVITAMIN INJ 10 ML, MAGNESIUM SULF INJ 2 GM in AMINO ACIDS... IV SCH (17:00)
[2019-03-27] MEDS: INSULIN REGULAR 100 UNIT/ML SUBCUT SCH ×4 (01:26→18:46)
[2019-03-27] MEDS: LEVOTHYROXINE 100 MCG TABLET PO SCH (05:50)
[2019-03-27] MEDS: metroNIDAZOLE INJ 500 MG in PREMIX 1 EACH IV SCH ×3 (05:50→21:35)
[2019-03-27 08:16] LABS: Basophils % 0.5 % (0.0-0.8); Eosinophils # 0.1 10*3/uL (0.0-0.87); Eosinophils % 1.9 % (0.00-10.9); Hematocrit 32.5 VOL% (35.7-47.0); Hemoglobin 10.3 GM/DL (12.0-16.0); Immature Granulocytes % 1.1 %; Immature Granulocytes Absolute 0.08 #; Lymphocytes # 0.9 10*3/uL (1.4-4.0); Lymphocytes % 12.2 % (21.3-54.2); Mean Corpuscular HGB Conc 31.7 GM/DL (32-36); Mean Corpuscular Volume 88.6 FL (87-102); Mean Platelet Volume 9.7 FL (9.6-12.0); Monocytes % 9.9 % (1.7-12.7); Neutrophils % 74.4 % (38.7-73.9); Platelet Count 255 T/CUMM (130-400); Red Blood Count 3.67 MC/CUMM (3.8-5.5); Red Cell Distribution Width 13.7 % (9.3-17.3); White Blood Count 7.4 T/CUMM (4-12)
[2019-03-27 08:44] LABS: Calcium 8.2 MG/DL (8.5-10.1); Osmolality,Calculated 275.8 MOS/KG (273-304)
[2019-03-27] MEDS: FERROUS SULFATE 325 MG TABLET PO SCH (09:53)
[2019-03-27] MEDS: GABAPENTIN 300 MG CAPSULE PO SCH ×2 (09:53→21:09)
[2019-03-27] MEDS: MAGNESIUM OXIDE 400 MG TABLET PO SCH ×2 (09:53→21:09)
[2019-03-27] MEDS: PANTOPRAZOLE 40 MG TABLET PO SCH (09:53)
[2019-03-27] MEDS: MEMANTINE 10 MG TABLET PO SCH ×2 (09:53→21:09)
[2019-03-27] MEDS: DESITIN 4OZ/NYSTATIN 15 GRAM MIXTURE PASTE TOP SCH ×2 (09:55→21:16)
[2019-03-27] MEDS: VANCOMYCIN 50 MG/ML 60 ML/BOTTLE PO SCH ×4 (09:56→21:10)
[2019-03-27] MEDS: LACTATED RINGERS 1,000 ML IV SCH ×2 (12:36→21:18)
[2019-03-27] MEDS: MORPHINE 4 MG/1 ML VIAL IV PRN (13:23)
[2019-03-27] MEDS: FAT EMULSION 20% 250 ML IV SCH (13:50)
[2019-03-27] MEDS: TRACE ELEMENTS (5) 1 ML, MULTIVITAMIN INJ 10 ML, MAGNESIUM SULF INJ 2 GM in AMINO ACIDS... IV SCH (16:31)
[2019-03-28] MEDS: INSULIN REGULAR 100 UNIT/ML SUBCUT SCH ×4 (01:59→18:28)
[2019-03-28 04:40] LABS: Basophils % 0.4 % (0.0-0.8); Eosinophils # 0.2 10*3/uL (0.0-0.87); Eosinophils % 2.2 % (0.00-10.9); Hematocrit 30.5 VOL% (35.7-47.0); Hemoglobin 9.8 GM/DL (12.0-16.0); Immature Granulocytes % 1.1 %; Immature Granulocytes Absolute 0.08 #; Lymphocytes % 13.8 % (21.3-54.2); Mean Corpuscular HGB Conc 32.1 GM/DL (32-36); Mean Corpuscular Volume 86.2 FL (87-102); Mean Platelet Volume 10.9 FL (9.6-12.0); Monocytes % 13.2 % (1.7-12.7); Neutrophils % 69.3 % (38.7-73.9); Platelet Count 206 T/CUMM (130-400); Red Blood Count 3.54 MC/CUMM (3.8-5.5); Red Cell Distribution Width 13.8 % (9.3-17.3); White Blood Count 7.3 T/CUMM (4-12)
[2019-03-28 04:50] LABS: Calcium 8.4 MG/DL (8.5-10.1)
[2019-03-28 04:52] LABS: Osmolality,Calculated 277.7 MOS/KG (273-304)
[2019-03-28] MEDS: metroNIDAZOLE INJ 500 MG in PREMIX 1 EACH IV SCH ×3 (05:50→21:48)
[2019-03-28] MEDS: LEVOTHYROXINE 100 MCG TABLET PO SCH (05:51)
[2019-03-28] MEDS ORDERED: PROPOFOL 200 MG/20 ML VIAL IV ONE (09:00)
[2019-03-28] MEDS ORDERED: LIDOCAINE 100 MG/5 ML SYRINGE ONE (09:00)
[2019-03-28] MEDS ORDERED: LACTATED RINGERS 1,000 ML IV SCH (09:20)
[2019-03-28] MEDS: MORPHINE 4 MG/1 ML VIAL IV PRN ×3 (09:30→22:44)
[2019-03-28] MEDS: DESITIN 4OZ/NYSTATIN 15 GRAM MIXTURE PASTE TOP SCH ×2 (09:40→21:33)
[2019-03-28 10:31] LABS: PT Patient Result 10.8 SECS (9.6-12.2)
[2019-03-28] MEDS: MEMANTINE 10 MG TABLET PO SCH ×2 (13:50→21:32)
[2019-03-28] MEDS: GABAPENTIN 300 MG CAPSULE PO SCH ×2 (13:50→21:32)
[2019-03-28] MEDS: PANTOPRAZOLE 40 MG TABLET PO SCH (13:50)
[2019-03-28] MEDS: MAGNESIUM OXIDE 400 MG TABLET PO SCH ×2 (13:50→21:32)
[2019-03-28] MEDS: FERROUS SULFATE 325 MG TABLET PO SCH (13:50)
[2019-03-28] MEDS: VANCOMYCIN 50 MG/ML 60 ML/BOTTLE PO SCH ×3 (13:51→21:33)
[2019-03-28] MEDS: FAT EMULSION 20% 250 ML IV SCH (14:28)
[2019-03-28] MEDS: TRACE ELEMENTS (5) 1 ML, MULTIVITAMIN INJ 10 ML, MAGNESIUM SULF INJ 2 GM in AMINO ACIDS... IV SCH (16:35)
[2019-03-29] MEDS: INSULIN REGULAR 100 UNIT/ML SUBCUT SCH ×4 (02:41→18:17)
[2019-03-29] MEDS: metroNIDAZOLE INJ 500 MG in PREMIX 1 EACH IV SCH ×3 (05:16→21:28)
[2019-03-29 06:48] LABS: Basophils % 0.3 % (0.0-0.8); Eosinophils % 0.3 % (0.00-10.9); Hematocrit 29.8 VOL% (35.7-47.0); Hemoglobin 9.6 GM/DL (12.0-16.0); Immature Granulocytes % 0.7 %; Immature Granulocytes Absolute 0.05 #; Lymphocytes # 0.7 10*3/uL (1.4-4.0); Lymphocytes % 9.7 % (21.3-54.2); Mean Corpuscular HGB Conc 32.2 GM/DL (32-36); Mean Corpuscular Volume 86.4 FL (87-102); Mean Platelet Volume 9.7 FL (9.6-12.0); Monocytes % 14.3 % (1.7-12.7); Neutrophils % 74.7 % (38.7-73.9); Platelet Count 226 T/CUMM (130-400); Red Blood Count 3.45 MC/CUMM (3.8-5.5); Red Cell Distribution Width 13.7 % (9.3-17.3); White Blood Count 6.9 T/CUMM (4-12)
[2019-03-29 07:14] LABS: Calcium 8.5 MG/DL (8.5-10.1); Osmolality,Calculated 269.4 MOS/KG (273-304)
[2019-03-29] MEDS: MORPHINE 4 MG/1 ML VIAL IV PRN ×5 (08:02→21:41)
[2019-03-29] MEDS: VANCOMYCIN 50 MG/ML 60 ML/BOTTLE PO SCH ×4 (08:03→21:30)
[2019-03-29] MEDS: GABAPENTIN 300 MG CAPSULE PO SCH ×2 (08:03→21:29)
[2019-03-29] MEDS: MAGNESIUM OXIDE 400 MG TABLET PO SCH ×2 (08:03→21:29)
[2019-03-29] MEDS: PANTOPRAZOLE 40 MG TABLET PO SCH (08:04)
[2019-03-29] MEDS: MEMANTINE 10 MG TABLET PO SCH ×2 (08:04→21:29)
[2019-03-29] MEDS: DESITIN 4OZ/NYSTATIN 15 GRAM MIXTURE PASTE TOP SCH ×2 (08:04→21:30)
[2019-03-29] MEDS: FERROUS SULFATE 325 MG TABLET PO SCH (08:04)
[2019-03-29] MEDS: LEVOTHYROXINE 100 MCG TABLET PO SCH (08:09)
[2019-03-29] MEDS: DICLOFENAC 1% GEL 100 GM TUBE TOP SCH ×3 (13:05→21:30)
[2019-03-29] MEDS: ACETAMINOPHEN 325 MG TABLET PO PRN (19:55)
[2019-03-30] MEDS: INSULIN REGULAR 100 UNIT/ML SUBCUT SCH ×3 (00:18→13:24)
[2019-03-30] MEDS: MORPHINE 4 MG/1 ML VIAL IV PRN ×2 (03:58→09:02)
[2019-03-30] MEDS: metroNIDAZOLE INJ 500 MG in PREMIX 1 EACH IV SCH (04:04)
[2019-03-30 04:53] LABS: Basophils % 0.5 % (0.0-0.8); Eosinophils # 0.1 10*3/uL (0.0-0.87); Eosinophils % 0.7 % (0.00-10.9); Hematocrit 31.1 VOL% (35.7-47.0); Immature Granulocytes % 0.8 %; Immature Granulocytes Absolute 0.07 #; Lymphocytes # 0.9 10*3/uL (1.4-4.0); Mean Corpuscular HGB Conc 32.2 GM/DL (32-36); Mean Corpuscular Volume 86.4 FL (87-102); Mean Platelet Volume 10.3 FL (9.6-12.0); Platelet Count 232 T/CUMM (130-400); Red Cell Distribution Width 13.9 % (9.3-17.3); White Blood Count 8.3 T/CUMM (4-12)
[2019-03-30 05:17] LABS: Calcium 8.8 MG/DL (8.5-10.1); Osmolality,Calculated 280.4 MOS/KG (273-304)
[2019-03-30] MEDS: ACETAMINOPHEN 325 MG TABLET PO PRN (07:54)
[2019-03-30] MEDS: DICLOFENAC 1% GEL 100 GM TUBE TOP SCH ×3 (09:02→21:49)
[2019-03-30] MEDS: PANTOPRAZOLE 40 MG TABLET PO SCH (09:03)
[2019-03-30] MEDS: MAGNESIUM OXIDE 400 MG TABLET PO SCH ×2 (09:03→21:47)
[2019-03-30] MEDS: LEVOTHYROXINE 100 MCG TABLET PO SCH (09:03)
[2019-03-30] MEDS: FERROUS SULFATE 325 MG TABLET PO SCH (09:03)
[2019-03-30] MEDS: GABAPENTIN 300 MG CAPSULE PO SCH ×2 (09:03→21:48)
[2019-03-30] MEDS: MEMANTINE 10 MG TABLET PO SCH ×2 (09:05→21:48)
[2019-03-30] MEDS: VANCOMYCIN 50 MG/ML 60 ML/BOTTLE PO SCH ×4 (09:06→21:48)
[2019-03-30] MEDS: DESITIN 4OZ/NYSTATIN 15 GRAM MIXTURE PASTE TOP SCH ×2 (09:06→22:33)
[2019-03-30] MEDS: MORPHINE 10 MG/5 ML UDCUP PO PRN ×2 (13:23→21:48)
[2019-03-30] MEDS: metroNIDAZOLE 500 MG TABLET PO SCH ×2 (13:24→21:47)
[2019-03-30] MEDS ORDERED: KETOROLAC 30 MG/1 ML VIAL IM ONE (13:56)
[2019-03-30] MEDS: APIXABAN 5 MG TABLET PO SCH (21:47)
[2019-03-31] MEDS: INSULIN REGULAR 100 UNIT/ML SUBCUT SCH ×4 (02:15→19:47)
[2019-03-31] MEDS: metroNIDAZOLE 500 MG TABLET PO SCH ×3 (05:18→21:03)
[2019-03-31] MEDS: APIXABAN 5 MG TABLET PO SCH ×2 (08:20→20:58)
[2019-03-31] MEDS: MAGNESIUM OXIDE 400 MG TABLET PO SCH ×2 (08:20→20:58)
[2019-03-31] MEDS: DESITIN 4OZ/NYSTATIN 15 GRAM MIXTURE PASTE TOP SCH ×2 (08:20→21:33)
[2019-03-31] MEDS: LEVOTHYROXINE 100 MCG TABLET PO SCH (08:20)
[2019-03-31] MEDS: GABAPENTIN 300 MG CAPSULE PO SCH ×2 (08:20→21:33)
[2019-03-31] MEDS: MEMANTINE 10 MG TABLET PO SCH ×2 (08:20→20:58)
[2019-03-31] MEDS: FERROUS SULFATE 325 MG TABLET PO SCH (08:20)
[2019-03-31] MEDS: PANTOPRAZOLE 40 MG TABLET PO SCH (08:20)
[2019-03-31] MEDS: MORPHINE 10 MG/5 ML UDCUP PO PRN ×2 (08:21→22:23)
[2019-03-31] MEDS: VANCOMYCIN 50 MG/ML 60 ML/BOTTLE PO SCH ×4 (08:23→21:00)
[2019-03-31] MEDS: DICLOFENAC 1% GEL 100 GM TUBE TOP SCH ×3 (08:27→21:00)
[2019-03-31] MEDS ORDERED: KETOROLAC 30 MG/1 ML VIAL IM ONE (12:27)
[2019-03-31] MEDS: ACETAMINOPHEN 325 MG TABLET PO PRN (20:59)
[2019-04-01] MEDS: INSULIN REGULAR 100 UNIT/ML SUBCUT SCH ×4 (01:47→18:01)
[2019-04-01] MEDS: metroNIDAZOLE 500 MG TABLET PO SCH ×2 (05:53→15:15)
[2019-04-01] MEDS: MORPHINE 10 MG/5 ML UDCUP PO PRN ×4 (05:53→19:23)
[2019-04-01] MEDS: MAGNESIUM OXIDE 400 MG TABLET PO SCH ×2 (08:56→21:46)
[2019-04-01] MEDS: VANCOMYCIN 50 MG/ML 60 ML/BOTTLE PO SCH ×4 (08:56→21:45)
[2019-04-01] MEDS: PANTOPRAZOLE 40 MG TABLET PO SCH (08:57)
[2019-04-01] MEDS: DESITIN 4OZ/NYSTATIN 15 GRAM MIXTURE PASTE TOP SCH ×2 (08:57→21:46)
[2019-04-01] MEDS: APIXABAN 5 MG TABLET PO SCH ×2 (08:57→21:45)
[2019-04-01] MEDS: LEVOTHYROXINE 100 MCG TABLET PO SCH (08:57)
[2019-04-01] MEDS: DICLOFENAC 1% GEL 100 GM TUBE TOP SCH ×3 (08:57→21:47)
[2019-04-01] MEDS: FERROUS SULFATE 325 MG TABLET PO SCH (08:57)
[2019-04-01] MEDS: GABAPENTIN 300 MG CAPSULE PO SCH ×2 (08:57→21:46)
[2019-04-01] MEDS: MEMANTINE 10 MG TABLET PO SCH ×2 (09:01→21:46)
[2019-04-02] MEDS: INSULIN REGULAR 100 UNIT/ML SUBCUT SCH ×3 (00:43→12:15)
[2019-04-02 05:44] LABS: Basophils % 0.3 % (0.0-0.8); Eosinophils # 0.1 10*3/uL (0.0-0.87); Eosinophils % 1.6 % (0.00-10.9); Hematocrit 28.1 VOL% (35.7-47.0); Hemoglobin 8.9 GM/DL (12.0-16.0); Immature Granulocytes Absolute 0.06 #; Lymphocytes # 0.7 10*3/uL (1.4-4.0); Lymphocytes % 11.2 % (21.3-54.2); Mean Corpuscular HGB Conc 31.7 GM/DL (32-36); Mean Corpuscular Volume 86.2 FL (87-102); Mean Platelet Volume 10.4 FL (9.6-12.0); Neutrophils % 70.9 % (38.7-73.9); Platelet Count 308 T/CUMM (130-400); Red Blood Count 3.26 MC/CUMM (3.8-5.5); Red Cell Distribution Width 13.7 % (9.3-17.3); White Blood Count 6.1 T/CUMM (4-12)
[2019-04-02 06:11] LABS: Calcium 8.7 MG/DL (8.5-10.1); Osmolality,Calculated 275.8 MOS/KG (273-304)
[2019-04-02] MEDS: VANCOMYCIN 50 MG/ML 60 ML/BOTTLE PO SCH ×3 (09:14→17:34)
[2019-04-02] MEDS: MEMANTINE 10 MG TABLET PO SCH (09:15)
[2019-04-02] MEDS: MAGNESIUM OXIDE 400 MG TABLET PO SCH (09:15)
[2019-04-02] MEDS: MORPHINE 10 MG/5 ML UDCUP PO PRN ×2 (09:15→14:45)
[2019-04-02] MEDS: FERROUS SULFATE 325 MG TABLET PO SCH (09:15)
[2019-04-02] MEDS: LEVOTHYROXINE 100 MCG TABLET PO SCH (09:16)
[2019-04-02] MEDS: DESITIN 4OZ/NYSTATIN 15 GRAM MIXTURE PASTE TOP SCH (09:16)
[2019-04-02] MEDS: PANTOPRAZOLE 40 MG TABLET PO SCH (09:16)
[2019-04-02] MEDS: APIXABAN 5 MG TABLET PO SCH (09:16)
[2019-04-02] MEDS: GABAPENTIN 300 MG CAPSULE PO SCH (09:16)
[2019-04-02] MEDS: DICLOFENAC 1% GEL 100 GM TUBE TOP SCH ×2 (09:16→17:34)
[2019-04-02 12:00] VITALS: BP 131/64
[2019-04-06] MEDS ORDERED: APIXABAN 5 MG TABLET PO SCH (21:00)
== END 2019-04-02 17:40 | disposition swing bed (61) | DRG 372 ==
LOC: EDBD → N.ICU 13:38 → SUATTDRO 13:38 → N.2E 03-15 15:49
PROVIDERS: ADMIT Internal Medicine; ATTEND Internal Medicine
PROC: EGDWPEG (ICD-10-PCS; 2019-03-28 11:30)